=== PATIENT | female | born 1965 | race Caucasian/White ===

== ENCOUNTER → 2017-08-07 17:06 | Outpatient (CLI) | payer OTHER, SELFPAY ==
[2017-08-07 17:20] LABS: Basophils % 0.5 % (0.1-2.0); Eosinophils # 0.1 K/mm3 (0.0-0.4); Eosinophils % 1.9 % (0.1-12.0); Hematocrit 38.2 % (37.0-47.0); Hemoglobin 12.1 g/dL (12.2-16.2); Lymphocytes # 1.7 K/mm3 (0.7-4.5); Mean Corpuscular HGB Conc 31.8 g/dL (31.8-35.4); Mean Corpuscular Hemoglobin 30.9 pg (27.0-31.2); Mean Corpuscular Volume 97.3 fl (81-99); Mean Platelet Volume 7.7 fl (7.4-10.4); Monocytes # 0.2 K/mm3 (0.1-1.0); Monocytes % 4.4 % (1.7-9.3); Neutrophils # 3.5 K/mm3 (1.8-7.8); Neutrophils % 63.2 % (37.0-80.0); Platelet Count 274 K/mm3 (142-424); Red Blood Count 3.92 M/mm3 (4.20-5.40); Red Cell Distribution Width 12.1 % (11.5-17.5); White Blood Count 5.5 K/mm3 (4.8-10.8)
[2017-08-07 19:30] LABS: Thyroid Stimulating Hormone 3.04 uIU/ml (0.358-3.740)
[2017-08-09 16:17] LABS: FSH 24.3 mIU/mL (.)
== END ==
PROVIDERS: Visit Provider Obstetrics & Gynecology
DX: N93.9 Abnormal uterine and vaginal bleeding, unspecified (principal); R53.82 Chronic fatigue, unspecified
CPT/HCPCS: 36415; 83001; 84443; 85025

== ENCOUNTER → 2017-08-18 12:12 | Outpatient (CLI) | payer OTHER, SELFPAY ==
--- NOTE | 2017-08-18 12:16 | US_ITS ---
US transvaginal Ordering Physician: Muriel Harding MD Patient Age: 51 years: Female HISTORY: ITS.REASON: Abnormal bleeding Previous no cycle for 6 months now with cycle lasting several weeks. essure contraception TECHNIQUE: Transvaginal pelvic ultrasound mw COMPARISON :Previous HSG 05/01/2009. FINDINGS Uterus appears perhaps mildly enlarged overall.: The 11 cm in length x 6 cm x 7 cm Uterus contains at least 3 small fibroids: FIBROID A: Measuring up to 2 cm. ( From \ my measurement) X 1.5 cm-Appears Submucosal appears to slightly indent the posterior aspect of the endometrium stripe superiorly FIBROID B: Measures up to 1.7 cm. Posterior myometrium more subserosal location at superior, aspect posterior myometrium FIBROID C: measures 1.8 cm and located posterior myometrium, to the left scar seen anterior aspect lower uterine segment Nabothian cyst also noted measuring 8.6 mm x 5.5 mm Endometrial stripe appears thickened superiorly measuring up to 1.1 cm. Right ovary was more difficult to visualize but. Normal size measuring 3.7 cm x 2.7 x 3 cm. There is a 2.5 cm cyst at right ovary Left ovary: measuring 2 cm x 1.2 cm x 1.7 cm. No fluid in cul-de-sac ======IMPRESSION: ========= 1. Slight enlarged uterus. 2. At least 3 fibroids noted.: The largest measuring up to 2 cm submucosal location superiorly, abuts/extending towards posterior aspect of endometrium 3. thickened endometrium measuring up to 1.1 cm AP. 4. Ovaries normal size. Right ovary with 2.5 cm cyst. Additional note Patient states history of a short film is bilaterally but these were not identified on today's scan 5. No fluid in cul-de-sac
== END ==
PROVIDERS: PCP Obstetrics & Gynecology; Visit Provider Obstetrics & Gynecology
DX: N93.9 Abnormal uterine and vaginal bleeding, unspecified (principal)
CPT/HCPCS: 76830